=== PATIENT | male | born 1990 | race Caucasian/White ===

== ENCOUNTER 2021-04-08 08:25 | Emergency (ER) | payer OTHER ==
[2021-04-08 08:39] VITALS: BP 136/70
[2021-04-08] MEDS ORDERED: KEFLEX500 MG PO (08:59)
== END 2021-04-08 09:15 | DRG 605 ==
LOC: ED 08:25
PROC: 0HQEXZZ Repair Left Lower Arm Skin, External Approach (ICD-10-PCS; principal; 2021-04-08)
DX: S51.812A Laceration without foreign body of left forearm, initial encounter (principal); X99.9XXA Assault by unspecified sharp object, initial encounter; Y92.149 Unspecified place in prison as the place of occurrence of the external cause